=== PATIENT | male | born 1985 | race Caucasian/White ===

== ENCOUNTER 2021-05-10 16:34 | Emergency (ER) | payer SELFPAY ==
[2021-05-10 16:40] VITALS: BP 125/78; PULSE 59; RESP 16; TEMP 36.3; O2SAT 98; BMI 24.3
--- NOTE | 2021-05-10 17:04 | W.ED.PSYCH ---
HPI - Psych General: Chief Complaint: Psychiatric Symptoms Stated Complaint: SI Time Seen by Provider: 05/10/21 16:56 History of Present Illness: HPI Narrative: 36-year-old male presents emergency room voluntarily. He evidently got into argument with his sister today said some things via text message reflecting that he might harm himself. He denies any intent to harm self he is never previously been hospitalized he has not made any attempts in the past to harm self never been hospitalized for any kind of psychiatric illness he is not on any psychiatric medications. He recognizes that what he said and texted precipitated this event and is apologetic but states repeatedly he has no intent of harming himself his episcopal steve prohibits him from doing so he states. He discusses different forward events he is planning including work and other activities. He came voluntarily because he did not want to be on a 96-hour hold and was advised by the pipe assembly worker if you went through this it could resolve the issue. He is very cooperative and not in any way argumentative or confrontational. MD complaint: other Onset (ago): hour(s) Duration: intermittent Relieving factors: none Exacerbating factors: none Associated symptoms: Deny auditory hallucinations, visual hallucinations, delusions, depression, homicidal ideation, suicidal ideation or racing thoughts Treatments prior to arrival: none Review of Systems Const: Denies: fever(s), chills, body aches, change in appetite, fatigue or malaise ENMT: Denies: throat pain, ear or mastoid pain, nasal discharge or nasal congestion Card: Denies: chest pain, edema, dyspnea on exertion or orthopnea Resp: Denies: dyspnea, productive cough or non-productive cough GI: Denies: abdominal pain, nausea, vomiting, hematemesis, coffee ground emesis, diarrhea, constipation, bloating, hematochezia or melena : Denies: flank pain, dysuria, urinary frequency or urinary urgency Skin/Breast: Denies: rash or pruritus Psych: Denies: depression, visual hallucinations, auditory hallucinations, suicidal ideation or homicidal ideation Physical Exam Const: COMMON NORMALS: no acute distress GENERAL APPEARANCE: cooperative and comfortable ORIENTATION/CONSCIOUSNESS: Yes awake, Yes oriented to person, Yes oriented to place and Yes oriented to time HENMT: COMMON NORMALS: normocephalic, atraumatic and hearing grossly normal bilaterally HEAD & SCALP: normocephalic and atraumatic Neck/C-Spine: COMMON NORMALS: no JVD Resp: COMMON NORMALS: normal respiratory effort, No retractions, No use of accessory muscles and clear to auscultation bilaterally AUSCULTATION: clear to auscultation bilaterally Cardio: COMMON NORMALS: no JVD, regular rate, regular rhythm and No murmurs present (Cardio) RATE: regular rate RHYTHM: regular rhythm Extremity: COMMON NORMALS: normal to inspection, capillary refill normal, no clubbing, cyanosis or edema, no calf tenderness and no pedal edema Neuro: SENSORIUM/ORIENTATION: Yes oriented to person, Yes oriented to place and Yes oriented to time Psych: THOUGHT CONTENT: No delusions Skin: COMMON NORMALS: no rashes or lesions noted GENERAL SKIN EXAM: no rashes or lesions noted Course Vital Signs: Vital signs: Vital Signs Temperature 97.3 F L 05/10/21 16:40 Pulse Rate 59 L 05/10/21 16:40 Respiratory Rate 16 05/10/21 16:40 Blood Pressure 125/78 05/10/21 16:40 Pulse Oximetry 98 05/10/21 16:40 MDM - Psych MDM Narrative: Medical decision making narrative: Patient essentially has been excited utterance which he is retracted. In talking to him he is very cooperative he is voluntarily here do not get any sense at all that he truly wants to harm self he denies it repeatedly. Psychiatry consult on the patient recommend they can be discharged home. Discharge Plan Discharge Patient Disposition: Home Clinical Impression: Outbursts of explosive behavior Condition: Stable Discharge Orders: Discharge ED (Routine); Ordered 05/10/21 Ordered By: Eleuterio Pathak Discharge Diet: Usual diet Discharge Activity: Increase activity as tolerated Patient Instructions: Opioid Safety Coding Level of Care Code ED Laboratory Technician for Wilder Fwd Exam Comprehensive
--- NOTE | 2021-05-10 18:24 | PC.NURSE ---
psych consult complete. verbal orders from Dr. Frey to go ahead with discharge
--- NOTE | 2021-05-10 18:29 | P.CONIM_ITS ---
Providers/Reason for Consult Consulting Physican/Specialty*: Jacques Frey MD, psychiatry Reason for Consult*: Suicidal statements Psych Consult HPI History of Present Illness Jacob Castillo is a 36 year old male who made suicidal statements to his sister via text. ED note from Dr. Pathak states: 36-year-old male presents emergency room voluntarily. He evidently got into argument with his sister today said some things via text message reflecting that he might harm himself. He denies any intent to harm self he is never previously been hospitalized he has not made any attempts in the past to harm self never been hospitalized for any kind of psychiatric illness he is not on any psychiatric medications. He recognizes that what he said and texted precipitated this event and is apologetic but states repeatedly he has no intent of harming himself his adventist steve prohibits him from doing so he states. He discusses different forward events he is planning including work and other activities. He came voluntarily because he did not want to be on a 96-hour hold and was advised by the manager disaster recovery if you went through this it could resolve the issue. He is very cooperative and not in any way argumentative or confrontational. The patient presents to me in a manner and with the story consistent with Dr. Pathak's note. He says that he got upset with his sister when she would not lend him money to help him retrieve his vehicle which had been towed. He does say, I said some things that I should not have said. But I was not suicidal, I was frustrated. He denies feeling suicidal recently. He does say he has some periods where he is depressed for a few hours, but not for extended periods. No changes in sleep, appetite, energy, motivation, or concentration. No feelings of helplessness, hopelessness, or worthlessness. No wish to or feeling that he would be better off . He denies ever having had auditory or visual hallucinations or paranoid delusions. He brought himself to the ED after talking to the police, who did a wellness check at the request of his sister. He has been cooperative, open, and transparent in the ED. The patient does say that he had relapsed on meth after his father's last year. He says, I just did not know how to cope. He says he has been abstinent for the last week, and this has left him a little more irritable and on edge. He also says that he has anxiety frequently. He sees a counselor, and has not wanted to take medication, because he did not want to be dependent on the substance. We discussed how SSRIs help with anxiety, their side effects, and their cost. He was surprised that he might be able to get a prescription for medication like Zoloft for as little as $4 per month. He says he has a therapist that he talks to twice a week, and plans to talk with her about a referral to a local provider in his community. He has never been psychiatrically hospitalized, nor has he ever taken psychiatric medications. Psychiatric history: As above. Substance use history: As above. Family history: Patient denies mental health or addiction issues on either side of the family and denies suicide attempts or completions in the family. Psychosocial history: The patient says he grew up in [facility], where he graduated from high school. He was once, then , without children. 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 Legal history: He says he was sentenced to 10 years in penitentiary for burglary and robbery in his mid 20s. He served 6-1/2 years and is now on parole. He says that penitentiary was one of the best experiences of my life. 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 He openly volunteers this information without hesitancy. Medical history: Denies any significant medical history. Review of Systems General: Reports: 10 or more systems reviewed and unremarkable except in HPI and below Mental Status Exam MSE Comments: I met with the patient in a hallway of the ED, as all rooms were filled. He was appropriately groomed and dressed in his work clothes. He was calm, cooperative, interactive, and made good eye contact. No psychomotor agitation or retardation. Speech is at a regular rate and rhythm, normal volume, good articulation, not pressured Alert, oriented to person, place, time, situation Attention and concentration were intact to exam. Memory is adequate for the interview. Mood is euthymic. Affect is pleasant. Thought process is logical and goal directed. Thought content No auditory or visual hallucinations, no suicidal ideation or homicidal ideation. Insight and judgment are intact. Vitals/I&O/Wt Last Vital Signs Temp 97.3 F L 05/10/21 16:40 Pulse 59 L 05/10/21 16:40 Resp 16 05/10/21 16:40 BP 125/78 05/10/21 16:40 Pulse Ox 98 05/10/21 16:40 Weight last 48 hrs Weight 74.843 kg A&P Assessment and plan (1) Outbursts of explosive behavior: Status: Acute (2) Anxiety disorder, unspecified: Status: Acute (3) Methamphetamine use: Status: Acute Additional A&P Information This is an open and cooperative 36-year-old man who wants to take responsibility for his actions, and brought himself to the ED for evaluation after talking to the police who did a wellness check. He has no evidence of major depression or suicidal ideation/intention. He is at low risk for harm to self or others in the community. He is psychiatrically cleared for discharge from the ED. It is recommended that he follow-up with his therapist to get a referral for a medication evaluation. Psychiatric medication, such as an SSRI, may be helpful for his anxiety condition. Attestations NPU Medical Necessity Statement*: N/A?medical necessity to be assessed by ED provider. Coding Level of Care Code Acute Clinical Research Nurse Coordinator for Wilder Rey Diagnoses Outbursts of explosive behavior R46.89 Anxiety disorder, unspecified F41.9 Methamphetamine use F15.10
== END 2021-05-10 18:31 | disposition home or self-care (01) ==
LOC: ER 18:13
PROVIDERS: Emergency Provider Family Medicine
DX: R46.89 Other symptoms and signs involving appearance and behavior (principal)
CPT/HCPCS: 99283

== ENCOUNTER 2021-12-12 17:40 | Inpatient (IN) | payer MEDICAID, SELFPAY ==
[2021-12-12 17:53] VITALS: BP 120/78; PULSE 88; RESP 19; TEMP 36.4; O2SAT 98
[2021-12-12 18:00] VITALS: BMI 24.3
--- NOTE | 2021-12-12 18:26 | PC.NURSE ---
ADMISSION PT ARRIVED DIRECT ADMIT FROM [facility]. STATES THAT HE HAS BEEN UNDER A LOT OF STRESS LATELY. HAS SPLIT UP WITH GIRLFRIEND RECENTLY, NOT BEEN ABLE TO SEE KIDS IN A WEEK, ARGUMENT WITH BOSS, STAYING WITH FRIENDS, INCREASED ANXIETY AND DEPRESSION D/T THESE THINGS. DENIES ANY SI/HI OR AVH, JUST WANTS HELP WITH ANXIETY AND DEPRESSION. HAS MULTIPLE BLISTERS TO B/L FEET. REPORTS THAT HE WALKED OFF JOB SIGHT AFTER ARGUMENT WITH BOSS AND WALKED 20 MILES IN BOOTS. BLISTERS ALL CLOSED AT THIS TIME. CALM, COOPERATIVE, O4.
[2021-12-12] MEDS: hyDROXYzine 25 mg Capsule 50 MG PO (20:27)
[2021-12-12 20:36] VITALS: BP 122/82; PULSE 83; RESP 20; TEMP 36.3; O2SAT 100
[2021-12-13 06:00] VITALS: BP 103/70; PULSE 51; RESP 16; TEMP 36.5; O2SAT 99
--- NOTE | 2021-12-13 08:45 | PC.OT ---
OT EVALUATION ATTEMPTED. PATIENT SLEEPING SOUNDLY AND DOES NOT AWAKEN. WILL ATTEMPT AGAIN AT A LATER TIME
[2021-12-13 14:00] VITALS: BP 111/67; PULSE 58; RESP 18; TEMP 36.4; O2SAT 99
--- NOTE | 2021-12-13 16:08 | W.PM.NPUH&PS ---
Providers/Chief Complaint Admitting Physician: Rickie Lui MD Chief Complaint: Anxiety HPI NPU History of Present Illness Jacob Castillo is a 36 year old male was seen in an outside emergency department with the following report: Client is seeking inpatient hospitalization and would like to be referred for inpatient psychiatric stay in [place]. Client has symptoms congruent with methamphetamine abuse/dependence, cannabis abuse, general anxiety disorder with panic and major depressive disorder. Client denies suicidal or homicidal ideation. Current symptoms of to the threshold of what is typically referred for inpatient hospitalization. However current provider believes that the client would benefit from inpatient psychiatric here if a bed can be found. He was admitted to the neuropsychiatry unit for definitive treatment of these issues. He reports that he has been more irritable and anxious since he was released after 7 years in care home in 2006. He was somewhat obsessive-compulsive that has decreased. He is uncomfortable in crowds. He is irritable. He denies having nightmares about being in care home. He does have all the classic symptoms of PTSD otherwise. He often has difficulty sleeping. He slept well last night with the vistaril. Unfortunately he had a hangover from that today. He was encouraged to try the trazodone tonight. He got into an argument with his sister last year and ended up in the emergency room after making suicidal comments. He was seen by our psychiatrist and reported as below. He was ultimately released that inpatient hospitalization was considered. He was prescribed Zoloft and agreed to take it but did not. He has been working with his girlfriend about 1 week ago and left her at the age hoping that they take care of him. He evidently caught her texting her ex boyfriend. They take care of all of her children and the children of 2 of her relatives. One of her sisters is in [place] [facility] with her . He feels guilty about leaving her and feels responsible for the care of those 8 children. He used methamphetamine about 4 days ago which probably exacerbated his anxiety. He is adamant that he would not use methamphetamine around his family. He denies significant alcohol abuse. His girlfriend only complains about his methamphetamine abuse. She hates that. We discussed the various antidepressants that are usually used for PTSD. He initially said that his family did not have depression, anxiety or alcohol problems. He recognizes the name of Lexapro and said that his mother had said something about taking that at one point and he would like to try it. He was in [employer] prior to going to care home. He was not in combat and denies any traumatic experiences in the [employer] prior to the [employer] which would have caused PTSD. He said that his family life was good and he was not abused or neglected as a child. Meds NPU Home Medications Medication Instructions Recorded Confirmed Last Taken Type No Known Home Medications 12/12/21 12/12/21 Unknown History Allergies Allergy/AdvReac Type Severity Reaction Status Date / Time erythromycin base Allergy ALGY-Anaphy Verified 05/10/21 16:51 laxis Mental Status Exam MSE Comments: This is a appropriate weight 36-year-old male who appears approximately his stated age and is in no acute distress. He is fairly well groomed and in hospital scrubs. psychomotor activity is normal. Speech is at a regular rate and rhythm, normal volume, good articulation, not pressured. Alert, oriented X3 Attention and concentration appear to be good. Memory is intact Mood is depressed. Affect is mildly dysphoric. Thought process is logical and goal-directed. Thought content: Denies auditory and visual hallucinations. No delusions or paranoia are noted. No current suicidal ideation, and no homicidal ideation. Fund of knowledge is average. Insight and judgment appear to be fair. Impulse control is poor. Vitals/I&O/Wt Last Vital Signs Temp 97.6 F 12/13/21 14:00 Pulse 58 L 12/13/21 14:00 Resp 18 12/13/21 14:00 BP 111/67 12/13/21 14:00 Pulse Ox 99 12/13/21 14:00 Weight last 48 hrs Weight 74.843 kg A&P Assessment and plan (1) Methamphetamine use: Status: Acute (2) Anxiety disorder, unspecified: Status: Acute Plan This is a 36-year-old male who appears to have PTSD from spending 7 years in care home. He was admitted due to anxiety and depression after having an argument leaving his family. Plan: 1. We will start Lexapro 10 mg every morning and trazodone at bedtime. 2. Continue every 15 minute checks for safety. 3. Encourage individual, group and milieu therapies. 4. Encourage sober living treatment after discharge at the highest level of care to which he is willing to commit. 5. We will monitor for safety for himself in the community prior to discharge. Involuntary Hold Information 96 Hour Hold: 96 Hour Involuntary Admission: No Attestations NPU Medical Necessity Statement*: Inpatient hospitalization is medically necessary and the clinically appropriate intervention at this time. We will initiate medications and make changes as indicated. He will be in the hospital for over 2 midnights. Likely length of stay 4-6 days Coding Level of Care Code Acute Golf Manager for Wilder Fwd Diagnoses Methamphetamine use F15.10 Anxiety disorder, unspecified F41.9
[2021-12-13 19:00] VITALS: BP 113/80; PULSE 103; RESP 18; TEMP 36.8; O2SAT 92
[2021-12-13] MEDS: trazodone 50 mg Tablet PO (20:35)
[2021-12-14 06:00] VITALS: BP 100/61; PULSE 56; RESP 18; TEMP 36.5; O2SAT 99
[2021-12-14] MEDS: escitalopram 10 mg Tablet PO (06:05)
--- NOTE | 2021-12-14 08:20 | W.PM.NPUDCS ---
Diagnoses at Discharge Discharge Diagnosis (1) Methamphetamine use: Status: Acute (2) Anxiety disorder, unspecified: Status: Acute Reason for Visit Reason for Visit: Anxiety Brief History: History of Present Illness Jacob Castillo is a 36 year old male was seen in an outside emergency department with the following report: Client is seeking inpatient hospitalization and would like to be referred for inpatient psychiatric stay in [place].? Client has symptoms congruent with methamphetamine abuse/dependence, cannabis abuse, general anxiety disorder with panic and major depressive disorder.? Client denies suicidal or homicidal ideation.? Current symptoms of to the threshold of what is typically referred for inpatient hospitalization.? However current provider believes that the client would benefit from inpatient psychiatric here if a bed can be found. He was admitted to the neuropsychiatry unit for definitive treatment of these issues.? He reports that he has been more irritable and anxious since he was released after 7 years in jail in 2006.? He was somewhat obsessive-compulsive that has decreased.? He is uncomfortable in crowds.? He is irritable.? He denies having nightmares about being in jail.? He does have all the classic symptoms of PTSD otherwise.? He often has difficulty sleeping.? He slept well last night with the vistaril.? Unfortunately he had a hangover from that today.? He was encouraged to try the trazodone tonight.? He got into an argument with his sister last year and ended up in the emergency room after making suicidal comments.? He was seen by our psychiatrist and reported as below.? He was ultimately released that inpatient hospitalization was considered.? He was prescribed Zoloft and agreed to take it but did not.? He has been working with his girlfriend about 1 week ago and left her at the age hoping that they take care of him.? He evidently caught her texting her ex boyfriend.? They take care of all of her children and the children of 2 of her relatives.? One of her sisters is in [place] along with her .? He feels guilty about leaving her and feels responsible for the care of those 8 children.? He used methamphetamine about 4 days ago which probably exacerbated his anxiety.? He is adamant that he would not use methamphetamine around his family.? He denies significant alcohol abuse.? His girlfriend only complains about his methamphetamine abuse.? She hates that. We discussed the various antidepressants that are usually used for PTSD.? He initially said that his family did not have depression, anxiety or alcohol problems.? He recognizes the name of Lexapro and said that his mother had said something about taking that at one point and he would like to try it.? He was in [employer] prior to going to jail.? He was not in combat and denies any traumatic experiences in the [employer] prior to the [employer] which would have caused PTSD.? He said that his family life was good and he was not abused or neglected as a child. Hospital Course Hospital Course He slowly acclimated to the individual, group and milieu therapies provided. Started on Lexapro 10 mg and trazodone for sleep. He tolerated these doses and showed steady improvement during his stay. He was able to contract for safety outside hospital prior to discharge. During the hospitalization, patient had routine laboratory studies which were within normal limits except for few outliers. Additionally there was a general medical evaluation which was also within normal limits and revealed no new acute processes. Discharge Summary: At the time of discharge, lethality was denied. Mood and anxiety were well managed. Patient endorsed a plan to follow-up with the aftercare recommendations of the treatment team. Patient was evaluated and deemed to be absent credible lethality, and had achieved the maximum benefit from an inpatient hospitalization, so was discharged. Involuntary Hold Information 96 Hour Hold: 96 Hour Involuntary Admission: No Mental Status Exam MSE Comments: This is a appropriate weight 36-year-old male who appears approximately his stated age and is in no acute distress. He is fairly well groomed and in hospital scrubs. psychomotor activity is normal. Speech is at a regular rate and rhythm, normal volume, good articulation, not pressured. Alert, oriented X3 Attention and concentration appear to be good. Memory is intact Mood is depressed. Affect is mildly dysphoric. Thought process is logical and goal-directed. Thought content: Denies auditory and visual hallucinations. No delusions or paranoia are noted. No current suicidal ideation, and no homicidal ideation. Fund of knowledge is average. Insight and judgment appear to be fair. Impulse control is poor. Cognition: Patient Appearance: Appropriate Ability to Follow Directions: Good Patient Orientation (long list): Person, Name, Age and Birthday Comprehension Ability: Understands Concepts Hallucination Type: None Delusion Description: Not Present Thought Process: Appropriate and Logical Affect: Affect Description: Appropriate and Anxious Behavior: Patient Behavior: Appropriate and Cooperative Speech Pattern: Appropriate and Clear Discharge Data Vitals: Last Vital Signs Temp 97.7 F 12/14/21 06:00 Pulse 56 L 12/14/21 06:00 Resp 18 12/14/21 06:00 BP 100/61 12/14/21 06:00 Pulse Ox 99 12/14/21 06:00 Discharge Plan Discharge Patient Disposition: Home Condition: Stable Prescriptions: New escitalopram oxalate 20 mg tablet 20 mg PO 0700 30 Days Qty: 30 1RF trazodone 50 mg Tablet 50 mg PO BEDTIME 30 Days Qty: 30 1RF Discharge Orders: Discharge Order (Routine); Ordered 12/14/21 Ordered By: Nick Bradley Discharge Diet: Regular Discharge Activity: Resume usual activity Patient Instructions: Opioid Safety Discharge Attestations NPU Time Spent in Discharge Care*: greater than 30 min Specific Discharge Activities: Specific discharge activities: educating patient, discussing with disease case manager/social workers/dc planners, documenting/other paperwork and evaluating patient/reviewing data Coding Level of Care Code Acute g FW DC note Diagnoses Methamphetamine use F15.10 Anxiety disorder, unspecified F41.9
[2021-12-14 08:39] VITALS: BP 100/61; PULSE 56; RESP 18; TEMP 36.5; O2SAT 99
== END 2021-12-14 08:56 | disposition home or self-care (01) | DRG 880 ==
PROVIDERS: Admitting Provider Psychiatry & Neurology Psychiatry; Visit Provider Psychiatry & Neurology Psychiatry
DX: F41.1 Generalized anxiety disorder (principal); F15.20 Other stimulant dependence, uncomplicated; F41.0 Panic disorder [episodic paroxysmal anxiety]; F12.10 Cannabis abuse, uncomplicated; F32.9 Major depressive disorder, single episode, unspecified; F43.10 Post-traumatic stress disorder, unspecified; Z81.8 Family history of other mental and behavioral disorders
CPT/HCPCS: 97165

== ENCOUNTER 2022-10-22 15:06 | Emergency (ER) | payer BC, MEDICAID, SELFPAY ==
[2022-10-22] VITALS (37 sets, daily range): BP systolic 125–152; BP diastolic 78–107; PULSE 53–99; RESP 15–29; O2SAT 98–100
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
[2022-10-22] MEDS: tetanus-dipt-pertussis 0.5 mL SDV IM (15:26)
[2022-10-22] MEDS: sodium chloride 0.9% 500 ML 999 ML IV (15:26)
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
[2022-10-22 15:32] LABS: Basophils % 0.4 %; Eosinophils % 0.2 %; Hematocrit 50.5 % (42.0-52.0); Hemoglobin 16.5 g/dL (11.7-16.6); Lymphocytes # 2.4 10^3/uL (0.8-4.8); Lymphocytes % 21.2 %; Mean Corpuscular HGB Conc 32.7 g/dL (30.0-36.0); Mean Corpuscular Volume 88.9 fl (80-94); Mean Platelet Volume 10.5 fL (7.4-10.4); Monocytes # 0.6 10^3/uL (0.2-0.9); Monocytes % 5.3 %; Neutrophils % 71.7 %; Nucleated Red Blood Cells % 0 %; Platelet Count 258 10^3/cmm (130-400); Red Blood Count 5.68 10^6/uL (4.1-5.3); Red Cell Distribution Width 13.2 % (12.1-15.1); White Blood Count 11.4 10^3/uL (4.0-10.0)
[2022-10-22 15:50] LABS: Alanine Aminotransferase 33 U/L (0-41); Albumin Level 4.6 g/dL (3.5-5.2); Alkaline Phosphatase 96 U/L (40-130); Aspartate Amino Transferase 47 U/L (0-40); Blood Urea Nitrogen 20 mg/dL (6-20); Calcium 9.2 mg/dL (8.5-10.5); Carbon Dioxide 21 mmol/L (22-29); Chloride 101 mmol/L (98-107); Globulin 2.5 g/dL (1.3-4.6); Glomerular Filtration Rate 109.4 mL/min (90-130); Glucose 77 mg/dL (65-115); Osmolality Calculated 285 mOsm/kg (285-295); Sodium 137 mmol/L (136-145); Total Bilirubin 0.2 mg/dL (0.15-1.2); Total Protein 7.1 g/dL (6.6-8.7)
[2022-10-22 15:51] LABS: Anion Gap 18.6 (5-19); Potassium 3.6 mmol/L (3.5-5.1)
[2022-10-22] MEDS: iohexol 350 mg/mL 500 mL Btl (per mL) IV (16:18)
== END 2022-10-22 18:25 | disposition left against medical advice (07) ==
PROVIDERS: Emergency Provider Emergency Medicine
DX: S42.101A Fracture of unspecified part of scapula, right shoulder, initial encounter for closed fracture (principal); S27.0XXA Traumatic pneumothorax, initial encounter; S00.81XA Abrasion of other part of head, initial encounter; S50.812A Abrasion of left forearm, initial encounter; S51.812A Laceration without foreign body of left forearm, initial encounter; V89.2XXA Person injured in unspecified motor-vehicle accident, traffic, initial encounter; Z23 Encounter for immunization; Z53.21 Procedure and treatment not carried out due to patient leaving prior to being seen by health care provider
CPT/HCPCS: 12001; 70450; 71260; 72125; 73030; 73060; 74177; 80053; 85025; 90471; 90715; 96360; 99285; J7040; Q9967

== ENCOUNTER 2023-04-25 09:55 | Emergency (ER) | payer BC, MEDICAID, SELFPAY ==
[2023-04-25 10:15] VITALS: BP 132/86; PULSE 71; RESP 16; TEMP 36.7; O2SAT 98
[2023-04-25 11:02] LABS: Basophils # 0.1 10^3/uL (0.0-0.1); Basophils % 0.5 %; Eosinophils # 0.1 10^3/uL (0.0-0.8); Eosinophils % 0.6 %; Hematocrit 56.4 % (42.0-52.0); Hemoglobin 18.7 g/dL (11.7-16.6); Lymphocytes # 1.2 10^3/uL (0.8-4.8); Lymphocytes % 12.6 %; Mean Corpuscular HGB Conc 33.2 g/dL (30.0-36.0); Mean Corpuscular Hemoglobin 29.7 pg (28.0-34.0); Mean Corpuscular Volume 89.5 fl (80-94); Mean Platelet Volume 9.7 fL (7.4-10.4); Monocytes # 0.6 10^3/uL (0.2-0.9); Monocytes % 6.5 %; Neutrophils # 7.59 10^3/uL (1.8-7.7); Neutrophils % 79.4 %; Nucleated Red Blood Cells % 0 %; Platelet Count 181 10^3/cmm (130-400); Red Cell Distribution Width 13.2 % (12.1-15.1); White Blood Count 9.6 10^3/uL (4.0-10.0)
--- NOTE | 2023-04-25 11:10 | ED_ITS ---
HPI - Abdominal Pain General: Chief Complaint: Abdominal Pain Stated Complaint: n/v x3 days Time Seen by Provider: 04/25/23 11:09 History of Present Illness: 38-year-old male with history of alcohol abuse and migraine headaches presents to emergency room with multiple complaints including headaches, nausea, vomiting and abdominal pain since the of this month. She further reviews that he was celebrating his birthday on the and drank a lot of alcohol. He is then he has some nausea and vomiting with headache. Scribes headache as throbbing sensation with severity of 7 out of 10 mostly frontal. This headache is similar to his previous headaches in the past and not the worst headache of his life. Neck pain, fever, coughing up blood or vomiting blood. Fever or chi lls. No sick contact or recent foreign travel. Describes abdominal pain as burning sensation mostly epigastric area pain is nonradiating. He rated his pain as 5 out of 10. Associated Symptoms: Reports nausea and vomiting; Denies bloating, coffee ground emesis, constipation, diarrhea, heartburn and hematemesis Review of Systems General: Reports: 10 or more systems reviewed and unremarkable except in HPI and below GI: Reports: abdominal pain, nausea and vomiting; Denies: hematemesis, coffee ground emesis, dysphagia, heartburn, early satiety, diarrhea, constipation or bloating Neuro: Reports: headache(s); Denies: numbness in extremities, weakness in extremities, sensory changes, lack of coordination, difficulty walking, frequent falls, dizziness, vertigo or confusion PFS ED PFSH: Medical History (Updated 04/25/23 @ 12:26 by Azucena Hardy MD) Cannabis dependence, uncomplicated Generalized anxiety disorder Nicotine dependence, cigarettes, uncomplicated Other stimulant dependence, in remission Psychiatric care Social History Smoking and tobacco status: never smoked Alcohol intake: never Substance/Drug Use: never Physical Exam Const: COMMON NORMALS: no acute distress and patient oriented x3; limitations and negative for healthy appearing GENERAL APPEARANCE: macey ative, comfortable and odor of alcohol detected Eye: COMMON NORMALS: Equal, round and reactive pupils present, EOMs intact bilaterally, conjunctivae normal, no scleral icterus, no papilledema, normal visual padilla by confrontation and fundi normal bilaterally CONJUNCTIVA: Yes conjunctivae normal PUPIL: Yes Equal, round and reactive pupils present DIRECT OPHTHALMOSCOPY: Yes no papilledema and Yes fundi normal bilaterally Neck/C-Spine: COMMON NORMALS: full ROM, no lymphadenopathy, supple, no meningeal signs, no JVD, Thyroid normal and No carotid bruits THYROID: Thyroid normal Lymph: LYMPHATIC: no lymphadenopathy noted Chest: COMMONS NORMALS: normal inspection of the chest, normal palpation of entire chest wall, normal inspection of the breasts and normal palpation of the breasts Breast/axilla inspection: Yes normal inspection of the breasts BREAST/AXILLA PALPATION: Yes normal palpation of the breasts Resp: COMMON NORMALS: normal respiratory effort, No retractions, No use of accessory muscles, clear to auscultation bilaterally and percussion normal AUSCULTATION: clear to auscultation bilaterally PERCUSSION: percussion normal Cardio: COMMON NORMALS: no JVD GI: COMMON NORMALS: Soft to palpation INSPECTION: Yes normal to inspection, No abdominal wall ecchymosis, No Abdominal wall edema, No Anasarca, No abdominal distension, No incision and No central obesity PALPATION: Yes Soft to palpation and Yes Tenderness to palpation present (GI) Details: other (Epigastric area) Neuro: COMMON NORMALS: patient oriented x3 MENINGEAL SIGNS: Yes no meningeal signs Skin: COMMON NORMALS: no rashes or lesions noted, no wounds, turgor normal, no jaundice, no petechiae and no mottling GENERAL SKIN EXAM: no rashes or lesions noted and turgor normal Course Vital Signs: Vital signs: Vital Signs Temperature 98.0 F 04/25/23 10:15 Pulse Rate 54 L 04/25/23 12:21 Respiratory Rate 16 04/25/23 10:15 Blood Pressure 101/79 04/25/23 12:21 Pulse Oximetry 100 04/25/23 12:21 Oxygen Delivery Me thod Room Air 04/25/23 12:21 MDM - Abdominal Pain Medical Decision Making Patient made comfortable emergency room. Patient was given IV fluid, IV Pepcid, IV Toradol and Benadryl. Upon reassessment patient reveals that his headache is subsided significantly. Discussed the lab findings with the patient. He was reassured and close follow-up PCP recommended. Differential Diagnosis Likely abdominal pain, acute appendicitis, calculus of kidney, constipation, diverticulitis, endometriosis, gastroenteritis, pancreatitis and small bowel obstruction (Meningitis, migraine headaches, headache, cluster headache, brain bleed,) Lab Data 04/25/23 10:45 04/25/23 10:45 Labs/Radiology: Laboratory Results WBC 9.6 10^3/uL (4.0-10.0) 04/25/23 10:45 RBC 6.30 10^6/uL (4.1-5.3) H 04/25/23 10:45 Hgb 18.7 g/dL (11.7-16.6) H 04/25/23 10:45 Hct 56.4 % (42.0-52.0) H 04/25/23 10:45 MCV 89.5 fl (80-94) 04/25/23 10:45 MCH 29.7 pg (28.0-34.0) 04/25/23 10:45 MCHC 33.2 g/dL (30.0-36.0) 04/25/23 10:45 RDW 13.2 % (12.1-15.1) 04/25/23 10:45 Plt Count 181 10^3/cmm (130-400) 04/25/23 10:45 MPV 9.7 fL (7.4-10.4) 04/25/23 10:45 Neut % (Auto) 79.4 % 04/25/23 10:45 Lymph % (Auto) 12.6 % 04/25/23 10:45 Hamlin % (Auto) 6.5 % 04/25/23 10:45 Eos % (Auto) 0.6 % 04/25/23 10:45 Baso % (Auto) 0.5 % 04/25/23 10:45 Neut # (Auto) 7.59 10^3/uL (1.8-7.7) 04/25/23 10:45 Lymph # (Auto) 1.2 10^3/uL (0.8-4.8) 04/25/23 10:45 Hamlin # (Auto) 0.6 10^3/uL (0.2-0.9) 04/25/23 10:45 Eos # (Auto) 0.1 10^3/uL (0.0-0.8) 04/25/23 10:45 Baso # (Auto) 0.1 10^3/uL (0.0-0.1) 04/25/23 10:45 Nucleated RBC % (auto) 0 % 04/25/23 10:45 Nucleated RBCs # 0.0 /100WBC 04/25/23 10:45 Sodium 140 mmol/L (136-145) 04/25/23 10:45 Potassium 4.3 mmol/L (3.5-5.1) 04/25/23 10:45 Chloride 102 mmol/L (98-107) 04/25/23 10:45 Carbon Dioxide 26 mmol/L (22-29) 04/25/23 10:45 Anion Gap 16.3 (5-19) 04/25/23 10:45 BUN 10 mg/dL (6-20) 04/25/23 10:45 Creatinine 0.9 mg/dL (0.7-1.2) 04/25/23 10:45 GFR Calculation 95.0 mL/min (90-130) 04/25/23 10:45 Glucose 100 mg/dL (65-115) 04/25/23 10:45 Calculated Osmolality 289 mOsm/kg (285-295) 04/25/23 10:45 Calcium 9.5 mg/dL (8.5-10.5) 04/25/23 10:45 Total Bilirubin 0.5 mg/dL (0.15-1.2) 04/25/23 10:45 AST 25 U/L (0-40) 04/25/23 10:45 ALT 17 U/L (0-41) 04/25/23 10:45 Alkaline Phosphatase 135 U/L (40-130) H 04/25/23 10:45 Total Protein 7.4 g/dL (6.6-8.7) 04/25/23 10:45 Albumin 4.2 g/dL (3.5-5.2) 04/25/23 10:45 Globulin 3.2 g/dL (1.3-4.6) 04/25/23 10:45 Lipase 14 U/L (13-60) 04/25/23 10:45 Discharge Plan Discharge Patient Disposition: Home Clinical Impression: Acute alcoholic gastritis, Headache, chronic migraine without aura Condition: Stable Prescriptions: New Fioricet 50-300-40 mg capsule 1 cap PO TID PRN (Reason: pain) Qty: 20 0RF promethazine 25 mg tablet 25 mg PO Q4H PRN (Reason: nausea and vomiting) Qty: 20 0RF No Action Aleve 220 mg Tablet 440 mg PO Q12H PRN (Reason: Pain) Discharge Orders: Discharge ED (Routine); Ordered 04/25/23 Ordered By: Azucena Hardy Discharge Diet: Advance as tolerated Discharge Activity: Resume usual activity Patient Instructions: Opioid Safety, Pain Management Coding Level of Care Code ED Gaming Cage Cashier for Wilder Rey
[2023-04-25 11:28] LABS: Alanine Aminotransferase 17 U/L (0-41); Albumin Level 4.2 g/dL (3.5-5.2); Alkaline Phosphatase 135 U/L (40-130); Anion Gap 16.3 (5-19); Aspartate Amino Transferase 25 U/L (0-40); Blood Urea Nitrogen 10 mg/dL (6-20); Calcium 9.5 mg/dL (8.5-10.5); Carbon Dioxide 26 mmol/L (22-29); Chloride 102 mmol/L (98-107); Creatinine Clr Calc Pharmacy 115.0122; Globulin 3.2 g/dL (1.3-4.6); Glucose 100 mg/dL (65-115); Lipase 14 U/L (13-60); Osmolality Calculated 289 mOsm/kg (285-295); Potassium 4.3 mmol/L (3.5-5.1); Sodium 140 mmol/L (136-145); Total Bilirubin 0.5 mg/dL (0.15-1.2); Total Protein 7.4 g/dL (6.6-8.7)
[2023-04-25] MEDS: famotidine 20 mg/2 mL INJ IVP (11:30)
[2023-04-25] MEDS: ondansetron 2 mg/ML SDV 2 mL 4 MG IVP (11:30)
[2023-04-25] MEDS: diphenhydrAMINE 50 mg/mL SDV 1mL 25 MG IVP (11:30)
[2023-04-25] MEDS: sodium chloride 0.9% 1,000 ML 999 ML IV (11:33)
[2023-04-25 12:21] VITALS: BP 101/79; PULSE 54; O2SAT 100
[2023-04-25] MEDS: ketorolac 30 mg/mL INJ IVP (12:29)
[2023-04-25 12:36] VITALS: BP 101/79; PULSE 54; O2SAT 100
--- NOTE | 2023-04-30 10:41 | DCPLANNER ---
geriatric care manager called patient due to no primary care physician - no answer at this time.
== END 2023-04-25 12:36 | disposition home or self-care (01) ==
PROVIDERS: Emergency Medicine; Emergency Provider Family Medicine
DX: K29.20 Alcoholic gastritis without bleeding (principal); G43.709 Chronic migraine without aura, not intractable, without status migrainosus
CPT/HCPCS: 36415; 80053; 83690; 85025; 96361; 96374; 96375; 99284; J1200; J1885; J2405; J3490; J7030

== ENCOUNTER 2024-01-12 20:27 | Inpatient (IN) | payer BC, SELFPAY ==
[2024-01-12 20:31] VITALS: BP 147/95; PULSE 110; RESP 18; TEMP 36.7; O2SAT 97; BMI 24.3
--- NOTE | 2024-01-12 20:48 | W.ED.PSYCHS ---
HPI - Psych General: Chief Complaint: Psychiatric Symptoms Stated Complaint: Si Time Seen by Provider: 01/12/24 20:29 Source: patient Mode of arrival: ambulatory Limitations: no limitations History of Present Illness: 38-year-old male states that his and recently left him he states he is now homeless he said he does not isolate without his for his kids being severely depressed. He states he been having suicidal thoughts he denies any specific plan denies any worse improved factors. Associated symptoms: Reports depression and suicidal ideation Review of Systems Const: Denies: fever(s) or chills ENMT: Denies: throat pain or dental pain Card: Denies: chest pain Resp: Denies: dyspnea GI: Denies: abdominal pain, nausea, vomiting or diarrhea Musc: Denies: neck pain or back pain Skin/Breast: Denies: rash Neuro: Denies: headache(s) Psych: Reports: depression and suicidal ideation [facility] ED PFSH: Medical History Generalized anxiety disorder Nicotine dependence, cigarettes, uncomplicated Cannabis dependence, uncomplicated Other stimulant dependence, in remission Social History Smoking and tobacco/nicotine status: never used tobacco/nicotine Alcohol intake: never Substance/Drug Use: never Physical Exam Const: COMMON NORMALS: no acute distress, patient oriented x3 and healthy appearing HENMT: COMMON NORMALS: normocephalic and atraumatic HEAD & SCALP: normocephalic and atraumatic Eye: COMMON NORMALS: conjunctivae normal CONJUNCTIVA: Yes conjunctivae normal Neck/C-Spine: COMMON NORMALS: full ROM and supple Chest: COMMONS NORMALS: normal inspection of the chest Resp: COMMON NORMALS: normal respiratory effort Cardio: COMMON NORMALS: regular rate RATE: regular rate Extremity: COMMON NORMALS: normal to inspection and full ROM Neuro: COMMON NORMALS: patient oriented x3, moves all extremities and no focal motor deficits Psych: COMMON NORMALS: mental status grossly normal, Normal thought process present and cooperative THOUGHT PROCESS: Normal thought process present THOUGHT CONTENT: Yes Suicidality present Skin: COMMON NORMALS: no rashes or lesions noted and no wounds GENERAL SKIN EXAM: no rashes or lesions noted Course Vital Signs: Vital signs: Vital Signs Temperature 98.1 F 01/12/24 20:31 Pulse Rate 110 H 01/12/24 20:31 Respiratory Rate 18 01/12/24 20:31 Blood Pressure 147/95 01/12/24 20:31 Pulse Oximetry 97 01/12/24 20:31 MDM - Psych Medical Decision Making Patient presents here with suicidal ideation patient is medically cleared he is placed on a 96-hour hold spoke to the psychiatrist and will admit. Medical Records I reviewed the patient's medical records. Lab Data I reviewed the patient's lab results. 01/12/24 20:49 01/12/24 20:49 Laboratory Results WBC 7.17 10^3/uL (3.29-11.43) 01/12/24 20:49 RBC 5.96 10^6/uL (3.85-5.65) H 01/12/24 20:49 Hgb 17.60 g/dL (11.27-16.99) H 01/12/24 20:49 Hct 51.8 % (37-53) 01/12/24 20:49 MCV 86.9 fl (82-101) 01/12/24 20:49 MCH 29.5 pg (27-33) 01/12/24 20:49 MCHC 34.0 g/dL (30-55) 01/12/24 20:49 RDW 12.4 % (12.1-15.1) 01/12/24 20:49 Plt Count 230 10^3/cmm (157-399) 01/12/24 20:49 MPV 9.7 fL (7.4-10.4) 01/12/24 20:49 Neut % (Auto) 66.0 % 01/12/24 20:49 Lymph % (Auto) 25.9 % 01/12/24 20:49 Henderson % (Auto) 7.3 % 01/12/24 20:49 Eos % (Auto) 0.3 % 01/12/24 20:49 Baso % (Auto) 0.4 % 01/12/24 20:49 Neut # (Auto) 4.73 10^3/uL (1.8-7.7) 01/12/24 20:49 Lymph # (Auto) 1.9 10^3/uL (0.8-4.8) 01/12/24 20:49 Henderson # (Auto) 0.5 10^3/uL (0.2-0.9) 01/12/24 20:49 Eos # (Auto) 0.0 10^3/uL (0.0-0.8) 01/12/24 20:49 Baso # (Auto) 0.0 10^3/uL (0.0-0.1) 01/12/24 20:49 Nucleated RBC % (auto) 0 % 01/12/24 20:49 Nucleated RBCs # 0.0 /100WBC 01/12/24 20:49 Sodium 140 mmol/L (136-145) 01/12/24 20:49 Potassium 3.9 mmol/L (3.5-5.1) 01/12/24 20:49 Chloride 103 mmol/L (98-107) 01/12/24 20:49 Carbon Dioxide 23 mmol/L (22-29) 01/12/24 20:49 Anion Gap 17.9 (5-19) 01/12/24 20:49 BUN 14 mg/dL (6-20) 01/12/24 20:49 Creatinine 0.9 mg/dL (0.7-1.2) 01/12/24 20:49 GFR Calculation 95.0 mL/min (90-130) 01/12/24 20:49 Glucose 107 mg/dL (65-115) 01/12/24 20:49 Calculated Osmolality 291 mOsm/kg (285-295) 01/12/24 20:49 Calcium 9.7 mg/dL (8.5-10.5) 01/12/24 20:49 Total Bilirubin 0.8 mg/dL (0.15-1.2) 01/12/24 20:49 AST 23 U/L (0-40) 01/12/24 20:49 ALT 23 U/L (0-41) 01/12/24 20:49 Alkaline Phosphatase 96 U/L (40-130) 01/12/24 20:49 Total Protein 8.2 g/dL (6.6-8.7) 01/12/24 20:49 Albumin 4.8 g/dL (3.5-5.2) 01/12/24 20:49 Globulin 3.4 g/dL (1.3-4.6) 01/12/24 20:49 Salicylates 3.2 mg/dL (3-10) 01/12/24 20:49 Acetaminophen < 5.0 ug/mL (10-30) L 01/12/24 20:49 Ethyl Alcohol 81 mg/dL (0-10) H 01/12/24 20:49 No radiology studies performed this visit Discharge Plan Discharge Patient Disposition: Admitted As Inpatient Admit Provider: Rickie Lui Clinical Impression: Suicidal ideation Condition: Stable Coding Level of Care Code ED Animal Surgeon for Wilder Rey
[2024-01-12 20:57] LABS: Basophils % 0.4 %; Eosinophils % 0.3 %; Hematocrit 51.8 % (37-53); Lymphocytes # 1.9 10^3/uL (0.8-4.8); Lymphocytes % 25.9 %; Mean Corpuscular Hemoglobin 29.5 pg (27-33); Mean Corpuscular Volume 86.9 fl (82-101); Mean Platelet Volume 9.7 fL (7.4-10.4); Monocytes # 0.5 10^3/uL (0.2-0.9); Monocytes % 7.3 %; Neutrophils # 4.73 10^3/uL (1.8-7.7); Nucleated Red Blood Cells % 0 %; Platelet Count 230 10^3/cmm (157-399); Red Blood Count 5.96 10^6/uL (3.85-5.65); Red Cell Distribution Width 12.4 % (12.1-15.1); White Blood Count 7.17 10^3/uL (3.29-11.43)
[2024-01-12 21:17] LABS: Acetaminophen < 5.0 ug/mL (10-30); Alanine Aminotransferase 23 U/L (0-41); Albumin Level 4.8 g/dL (3.5-5.2); Alcohol Level 81 mg/dL (0-10); Alkaline Phosphatase 96 U/L (40-130); Anion Gap 17.9 (5-19); Aspartate Amino Transferase 23 U/L (0-40); Blood Urea Nitrogen 14 mg/dL (6-20); Calcium 9.7 mg/dL (8.5-10.5); Carbon Dioxide 23 mmol/L (22-29); Chloride 103 mmol/L (98-107); Creatinine Clr Calc Pharmacy 115.0122; Globulin 3.4 g/dL (1.3-4.6); Glucose 107 mg/dL (65-115); Osmolality Calculated 291 mOsm/kg (285-295); Potassium 3.9 mmol/L (3.5-5.1); Salicylate 3.2 mg/dL (3-10); Sodium 140 mmol/L (136-145); Total Bilirubin 0.8 mg/dL (0.15-1.2); Total Protein 8.2 g/dL (6.6-8.7)
--- NOTE | 2024-01-12 21:50 | PC.NURSE ---
Pt served with copy of 96 HH by this RN and security. Pt tearful and asking for a picture from his wallet. Pt asking if this admission would be able to released him into an appropriate detox center after discharge. Pt A&Ox3, willing to be admitted.
[2024-01-12 22:11] VITALS: BP 120/83; PULSE 90; RESP 18; TEMP 36.4; O2SAT 98
[2024-01-12 23:01] VITALS: BP 107/63; PULSE 74; RESP 16; O2SAT 98
--- NOTE | 2024-01-12 23:47 | PC.NURSE ---
Admission Note Pt arrived to NPU by wheel chair at 2258. Pt stated that he is here because life sucks and everything he lives and works for is gone now. Pt told ED that his had left him and he is now depressed. Pt appears to be upset and irritated during admission. Pt has very poor eye contact and kept saying that we are taking away his roman catholic rights by having him take off his wedding ring. Pt denied SI/HI/AVH during admission and denied any substance abuse HX. Pt was dressed into NPU scrubs, skin assessment was normal but pt appears to be sunburnt and his eyes are appear to be very red. Pt was orientated to unit and is now observed resting in bed quietly with eyes closed. Behavioral monitoring continues.
[2024-01-13 03:58] VITALS: BP 115/74; PULSE 58; RESP 18; TEMP 36.6; O2SAT 97
[2024-01-13] MEDS: multivitamin therapeutic Tablet 1 TAB PO (11:09)
[2024-01-13] MEDS: thiamine 100 mg Tablet PO (11:09)
[2024-01-13] MEDS: folic acid 1 mg Tablet PO (11:10)
--- NOTE | 2024-01-13 11:51 | W.PM.NPUH&PS ---
Providers/Chief Complaint Admitting Physician: Rickie Lui MD Chief Complaint: Si HPI NPU History of Present Illness Jacob Castillo is a 38 year old male who presented to the emergency department stating that he was homeless and that he had suicidal thoughts. The patient had reported that he had no active plan but was feeling increasingly hopeless over the last few days. Patient was admitted to the neuropsychiatric unit for further evaluation and treatment. He had stated that he had been from his for a few days and reports that he had recently been presented by the police with an ex partner a and reports that he was tired of living away from his home. He reports that he had feels that he has lost everything as he states that he is lost all of his life and reports that he feels that he may do something desperate if he did not go into the hospital. He reports a past history of polysubstance abuse but reports currently using marijuana nearly every day along with alcohol use daily for the last 9 months. He had minimized any history of alcohol-related withdrawal symptoms. He reports that he has had depression at various times in his life but had been doing well until he had the interaction with his yesterday where she told him that she was going to take all of the children and move out permanently. Patient denies any history of nayely. He denies any auditory or visual hallucinations. He had acknowledged previous methamphetamine use in the past but states that he has not used in years. He had reported having chronic problems with managing his anxiety. Time In: 12:00 Time Out: 13:00 Chief Complaint: Anxiety History of Present Illness: [facility]. Jacob reports high anxiety. States anxiety controls his life and causes him not to be able to work and provide for his family. He describes his anxiety as feeling sweaty, his heart rate increasing, sounds intensifying and sounding very loud. Tells me this is increased when he is around a lot of people. He states he has gone into stores and had to turn around and leave. Anxiety is better when he is at home. Reports mild depression that he is unable to take care of his family. States he gets aggravated for no reason and can be irritable. No suicidal thoughts. No homicidal thoughts. No auditory or visual hallucinations. States he sleeps well for the most part. States he can go weeks going to bed at 10 PM and waking up at 6 AM but then sometimes he will not go to sleep until 6 AM and will sleep until 6 PM. He reports when he is at work sometimes he worries is he working fast enough or is he doing the job right. Reports somewhat of paranoid thoughts when he is on the job. Uses marijuana to treat his anxiety but because he is on parole he is wanting to trial medications for his anxiety as to not upset his intelligence officer basic. Denies a history of nayely. He had minimized any PTSD symptoms although those symptoms had been reported in the past stemming from his trauma after he had been incarcerated for 7 years per previous records. He had minimized any alcohol related withdrawal symptoms with no history of DTs. The patient had reported that he had been using a significant quantity of alcohol and may have vomited blood in the past but reports no history of blackouts. Patient reports difficulties being in large crowds, past history of anxiety attacks. He reports having frequent mood swings and struggles with chronic anxiety. Inpatient psychiatric history: 1 previous inpatient psychiatric hospitalization in December 2021. Outpatient psychiatric history: Patient had been receiving treatment at the behavioral health clinic in the past. He had reported no history of suicide attempts. Previous medication trials have included Lexapro, Zoloft, and trazodone with reports of sexual side effects. He is currently not not receiving any psychotherapy. Allergies: Erythromycin Medical history: Significant only for double hernia repair surgically and some chronic right knee pain. He has no primary care provider. Substance abuse history: He is smoked 1 pack/day of cigarettes since the age of 26. There are previous documentation of a history of methamphetamine use along with opiate abuse but stated that he has been without stimulant or opiate use for years. He had reported that he began use of alcohol at the age of 15 and reports having periods of no use of alcohol for years but reports significant use over the past 9 months. Family History: Denies a family history of mental illness Legal History: not on probation or parole currently, hx of being [id number] for robbery. Multiple DWI x4, History: history for less than 1 year, medical discharge secondary to knee. Social History: The patient was born in [place] [facility] and raised in [place]. He resided with his mother and stepfather. He reports having 3 sisters none of whom he is close with at this time. He states his mother when patient was 30 and his father at the age of 34. He had reported graduating high school with no history of learning problems. He had reported having a happy childhood. He had reported that he had been incarcerated in the past per previous records having engaged in robbery and kidnapping. He had been living with his current common-law for 4 years but is currently homeless. He has no biological children of his own but has 5 steps children who live with the patient's common-law . 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 Blood alcohol level was 81, UDS not completed. Meds NPU Home Medications Medication Instructions Recorded Confirmed Last Taken Type No Known Home Medications 01/12/24 01/12/24 Unknown History Allergies Allergy/AdvReac Type Severity Reaction Status Date / Time erythromycin base Allergy ALGY-Anaphy Verified 04/25/23 11:16 laxis PFSH NPU PFSH: Medical History Generalized anxiety disorder Nicotine dependence, cigarettes, uncomplicated Cannabis dependence, uncomplicated Other stimulant dependence, in remission Social History Smoking and tobacco/nicotine status: never used tobacco/nicotine Alcohol intake: never Substance/Drug Use: never Mental Status Exam MSE Comments: Patient was alert and oriented to person place time and situation. His hygiene appeared poor. He was lying in bed and appeared initially disinterested in providing history but appeared to warm up later. His gait appeared adequate. There was no evidence of any abnormal involuntary motor movements tics or tremors appreciated. His speech was regular in rate rhythm volume tone and prosody. His eye contact was poor. There was evidence of mild to moderate psychomotor retardation. His mood was described as depressed. His affect was tearful and mood congruent. His thought content showed evidence of suicidal ideation with no active plan. He denied any homicidal ideation. He did not appear to be responding internal stimuli and denied any auditory or visual hallucinations. There was no clear evidence of delusional thinking. His attention span appeared fair. His recent and remote memory appeared grossly intact. Vitals/I&O/Wt Last Vital Signs Temp 97.8 F 01/13/24 03:58 Pulse 58 L 04/09/24 03:58 Resp 18 01/13/24 03:58 BP 115/74 01/13/24 03:58 Pulse Ox 97 01/13/24 03:58 O2 Del Method Room Air 01/13/24 03:58 Weight last 48 hrs Weight 74.843 kg Data NPU 01/12/24 20:49 01/12/24 20:49 A&P Assessment and plan (1) Depression, unspecified: (2) Alcohol abuse: (3) Suicidal ideation: (4) Generalized anxiety disorder: (5) Cannabis dependence, uncomplicated: Plan 38-year-old male with history of depression admitted with suicidal ideation in the context of use of alcohol as well with recent homelessness as a stressor. #1.? Engage patient in individual milieu and group therapy. #2?? Recommend sober living treatment at the highest level of care to which the patient is willing to commit #3??? CIWA for alcohol withdrawal #4?? TO-15 minute checks #5?? Will attempt to gather collateral information. Consider antidepressant and medication to reduce alcohol cravings Involuntary Hold Information 96 Hour Hold: 96 Hour Involuntary Admission: Yes 96 Hour Hold Ending Date: 01/16/24 96 Hour Hold Ending Time: 20:55 Attestations NPU Medical Necessity Statement*: Inpatient hospitalization is medically necessary and deemed to ?be ?the clinically appropriate intervention ?at this time.? We will monitor/initiate medications and make changes as indicated.? The patient will be in the hospital for over 2 midnights.? The patient?s likely length of stay 3-5 days. Coding Level of Care Code Acute Code for [facility] Diagnoses Depression, unspecified F32.A Alcohol abuse F10.10 Suicidal ideation R45.851 Generalized anxiety disorder F41.1 Cannabis dependence, uncomplicated F12.20
[2024-01-13 14:00] VITALS: BP 99/59; PULSE 62; RESP 16; TEMP 36.6; O2SAT 99
[2024-01-13 19:42] VITALS: BP 97/54; PULSE 73; RESP 16; TEMP 37; O2SAT 97
[2024-01-13 23:56] VITALS: BP 127/67; PULSE 68; RESP 17; TEMP 36.7; O2SAT 97
[2024-01-14 04:30] VITALS: BP 111/74; PULSE 55; RESP 18; TEMP 36.6; O2SAT 98
[2024-01-14 06:00] VITALS: BP 114/70; PULSE 50; RESP 17; TEMP 36.7; O2SAT 98
[2024-01-14 07:55] VITALS: BP 114/69; PULSE 52; RESP 16; TEMP 36.8; O2SAT 97
[2024-01-14] MEDS: thiamine 100 mg Tablet PO (08:04)
[2024-01-14] MEDS: folic acid 1 mg Tablet PO (08:04)
[2024-01-14] MEDS: multivitamin therapeutic Tablet 1 TAB PO (08:04)
[2024-01-14 11:38] VITALS: BP 148/99; PULSE 100; RESP 16; TEMP 36.6; O2SAT 96
[2024-01-14 13:53] VITALS: BP 120/68; PULSE 77; RESP 16; TEMP 36.6; O2SAT 98
--- NOTE | 2024-01-14 14:34 | P.NPUPN_ITS ---
Subjective NPU 2 Subjective: 38-year-old white male [facility] with depression and suicidal ideation with a history of polysubstance abuse. Patient had reported that he was motivated to return to work and wished to get help on an outpatient basis for managing his problems with alcohol consumption. He was agreeable to consideration of Vivitrol to target cravings for alcohol. He had reported continuing to feel depressed and hopeless. He had endorsed having significant losses as he stated that he had been homeless and reported continued periods of sadness. He had endorsed significant trauma from his time spent in jail for several years. He had reported that he would like to return back to counseling at this time. Staff notes the patient had spent nearly the whole day in his room sleeping. He had continued to report active anxiety and stated that he did not wish to consider antidepressants at this time secondary to previous problems with tolerating antidepressants including sexual dysfunction. Mental Status Exam 2 MSE Comments: The patient was completely covered in his blanket and required some prompting to show his face on interview. His hygiene was poor. Patient was alert and oriented to person place time and situation. He was lying in bed and was minimally engaged initially. His gait appeared adequate. There was no evidence of any abnormal involuntary motor movements tics or tremors appreciated. His speech was regular in rate rhythm volume tone and prosody. His eye contact was fleeting. There was evidence of mild to moderate psychomotor retardation. His mood was described as depressed. His affect remained restricted. He minimized any suicidal ideation. He denied any homicidal ideation. He did endorse a sense of hopelessness. He did not appear to be responding internal stimuli and denied any auditory or visual hallucinations. There was no clear evidence of delusional thinking. His attention span appeared fair. His recent and remote memory appeared grossly intact. Vitals/I&O/Wt Last Vital Signs Temp 97.8 F 01/14/24 13:53 Pulse 77 01/14/24 13:53 Resp 16 01/14/24 13:53 BP 120/68 01/14/24 13:53 Pulse Ox 98 01/14/24 13:53 O2 Del Method Room Air 01/14/24 11:38 Weight last 48 hrs Weight 74.843 kg Data NPU 01/12/24 20:49 01/12/24 20:49 A&P Assessment and plan (1) Depression, unspecified: (2) Alcohol abuse: (3) Suicidal ideation: (4) Generalized anxiety disorder: (5) Cannabis dependence, uncomplicated: Plan 38-year-old male with history of depression admitted with suicidal ideation in the context of use of alcohol as well with recent homelessness as a stressor. #1.? Engage patient in individual milieu and group therapy. #2?? Recommend sober living treatment at the highest level of care to which the patient is willing to commit #3??? CIWA for alcohol withdrawal. Currently not scoring on withdrawal scale. Trial of oral naltrexone 50mg today with plan for IM vivitrol to target ETOH dependence. #4?? TO-15 minute checks #5?? Will attempt to gather collateral information. Patient refusing medication to target depression/anxiety. Involuntary Hold Information 2 96 Hour Hold: 96 Hour Involuntary Admission: Yes 96 Hour Hold Ending Date: 01/16/24 96 Hour Hold Ending Time: 20:55 Attestations NPU 2 Medical Necessity Statement*: Inpatient hospitalization is medically necessary and deemed to ?be ?the clinically appropriate intervention ?at this time.? We will monitor/initiate medications and make changes as indicated.? The patient?s likely length of stay 3-5 days. Coding Level of Care Code Acute Code for [facility] Fwd Diagnoses Depression, unspecified F32.A Alcohol abuse F10.10 Suicidal ideation R45.851 Generalized anxiety disorder F41.1 Cannabis dependence, uncomplicated F12.20
[2024-01-14] MEDS: naltrexone hcl 50 mg Tablet PO (14:53)
[2024-01-14 14:57] LABS: Amphetamines Screen Urine Positive (Negative); Barbiturates Screen Urine Negative (Negative); Benzodiazepines Screen Urine Negative (Negative); Cocaine Screen Urine Negative (Negative); Opiate Screen Urine Negative (Negative); PCP Screen Urine Negative (Negative); THC Screen Urine Positive (Negative)
[2024-01-14 19:28] VITALS: BP 110/69; PULSE 57; RESP 16; TEMP 36.7; O2SAT 99
[2024-01-15 06:00] VITALS: BP 102/54; PULSE 50; RESP 14; TEMP 36.6; O2SAT 98
[2024-01-15] MEDS: multivitamin therapeutic Tablet 1 TAB PO (09:37)
[2024-01-15] MEDS: naltrexone hcl 50 mg Tablet PO (09:37)
[2024-01-15] MEDS: folic acid 1 mg Tablet PO (09:37)
[2024-01-15] MEDS: thiamine 100 mg Tablet PO (09:37)
--- NOTE | 2024-01-15 13:24 | P.NPUDS_ITS ---
Diagnoses at Discharge Discharge Diagnosis (1) Depression, unspecified: Status: Acute Qualifiers: Depression Type: unspecified Qualified Code(s): F32.A - Depression, unspecified (2) Alcohol abuse: Status: Acute (3) Suicidal ideation: Status: Acute (4) Generalized anxiety disorder: Status: Acute (5) Cannabis dependence, uncomplicated: Status: Acute Reason for Visit Reason for Visit: Si Brief History: History of Present Illness Jacob Castillo is a 38 year old male who presented to the emergency department stating that he was homeless and that he had suicidal thoughts. The patient had reported that he had no active plan but was feeling increasingly hopeless over the last few days. Patient was admitted to the neuropsychiatric unit for further evaluation and treatment. He had stated that he had been from his for a few days and reports that he had recently been presented by the police with an ex partner a and reports that he was tired of living away from his home. He reports that he had feels that he has lost everything as he states that he is lost all of his life and reports that he feels that he may do something desperate if he did not go into the hospital. He reports a past history of polysubstance abuse but reports currently using marijuana nearly every day along with alcohol use daily for the last 9 months. He had minimized any history of alcohol-related withdrawal symptoms. He reports that he has had depression at various times in his life but had been doing well until he had the interaction with his yesterday where she told him that she was going to take all of the children and move out permanently. Patient denies any history of nayely. He denies any auditory or visual hallucinations. He had acknowledged previous methamphetamine use in the past but states that he has not used in years. He had reported having chronic problems with managing his anxiety. Time In: 12:00 Time Out: 13:00 Chief Complaint: Anxiety History of Present Illness: [facility]. Jacob reports high anxiety. States anxiety controls his life and causes him not to be able to work and provide for his family. He describes his anxiety as feeling sweaty, his heart rate increasing, sounds intensifying and sounding very loud. Tells me this is increased when he is around a lot of people. He states he has gone into stores and had to turn around and leave. Anxiety is better when he is at home. Reports mild depression that he is unable to take care of his family. States he gets aggravated for no reason and can be irritable. No suicidal thoughts. No homicidal thoughts. No auditory or visual hallucinations. States he sleeps well for the most part. States he can go weeks going to bed at 10 PM and waking up at 6 AM but then sometimes he will not go to sleep until 6 AM and will sleep until 6 PM. He reports when he is at work sometimes he worries is he working fast enough or is he doing the job right. Reports somewhat of paranoid thoughts when he is on the job. Uses marijuana to treat his anxiety but because he is on parole he is wanting to trial medications for his anxiety as to not upset his chief accounting officer. Denies a history of nayely. He had minimized any PTSD symptoms although those symptoms had been reported in the past stemming from his trauma after he had been incarcerated for 7 years per previous records. He had minimized any alcohol related withdrawal symptoms with no history of DTs. The patient had reported that he had been using a significant quantity of alcohol and may have vomited blood in the past but reports no history of blackouts. Patient reports difficulties being in large crowds, past history of anxiety attacks. He reports having frequent mood swings and struggles with chronic anxiety. Inpatient psychiatric history: 1 previous inpatient psychiatric hospitalization in December 2021. Outpatient psychiatric history: Patient had been receiving treatment at the behavioral health clinic in the past. He had reported no history of suicide attempts. Previous medication trials have included Lexapro, Zoloft, and trazodone with reports of sexual side effects. He is currently not not receiving any psychotherapy. Allergies: Erythromycin Medical history: Significant only for double hernia repair surgically and some chronic right knee pain. He has no primary care provider. Substance abuse history: He is smoked 1 pack/day of cigarettes since the age of 26. There are previous documentation of a history of methamphetamine use along with opiate abuse but stated that he has been without stimulant or opiate use for years. He had reported that he began use of alcohol at the age of 15 and reports having periods of no use of alcohol for years but reports significant use over the past 9 months. Family History: Denies a family history of mental illness Legal History: not on probation or parole currently, hx of being sent to [facility] from [id number] for robbery. Multiple DWI x4, History: history for less than 1 year, medical discharge secondary to knee. Social History: The patient was born in [place] and raised in [place] [facility] [place]. He resided with his mother and stepfather. He reports having 3 sisters none of whom he is close with at this time. He states his mother when patient was 30 and his father at the age of 34. He had reported graduating high school with no history of learning problems. He had reported having a happy childhood. He had reported that he had been incarcerated in the past per previous records having engaged in robbery and kidnapping. He had been living with his current common-law for 4 years but is currently homeless. He has no biological children of his own but has 5 steps children who live with the patient's common-law . 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 Blood alcohol level was 81, UDS not completed. Hospital Course Hospital Course During the hospitalization, the patient had routine laboratory studies which were within normal limits except for a few outliers.? Additionally, there was a general medical evaluation which was also within normal limits and revealed no new acute processes.? At the time of discharge, lethality was denied and mood appeared better. ? Mood and anxiety were well managed.? The patient endorsed a plan to avoid all drugs of abuse and follow up with the aftercare recommendations of the treatment team.? The patient was evaluated and deemed to be absent credible lethality and had achieved the maximum benefit from an inpatient hospitalization, and so was discharged. ?The patient did not wish to consider any antidepressant but was interested in a medication to target his c ravings for alcohol. An oral dose of naltrexone was started without any noted side effects or allergic reaction. The patient then received 380 mg intramuscularly of Vivitrol to target alcohol abuse at the time of discharge. He was agreeable to returning home and receiving outpatient follow-up for his substance use issues. Involuntary Hold Information 96 Hour Hold: 96 Hour Involuntary Admission: Yes 96 Hour Hold Ending Date: 01/16/24 96 Hour Hold Ending Time: 20:55 Mental Status Exam MSE Comments: The patient was casually dressed white male His hygiene was improving. Patient was alert and oriented to person place time and situation. His gait appeared adequate. There was no evidence of any abnormal involuntary motor movements tics or tremors appreciated. His speech was regular in rate rhythm volume tone and prosody. His eye contact was fair. There was evidence of mild psychomotor retardation on discharge. His mood was described as allright. His affect appeared brighter on dishcarge. He minimized any suicidal ideation. He denied any homicidal ideation. He denied any feelings of hopelessness. He did not appear to be responding internal stimuli and denied any auditory or visual hallucinations. There was no clear evidence of delusional thinking. His attention span appeared fair. His recent and remote memory appeared grossly intact. His insight was fair. His judgment and impulse control was improved at the time of discharge. Discharge Data Studies Completed and Pending: Laboratory Results WBC 7.17 10^3/uL (3.2 9-11.43) 01/12/24 20:49 RBC 5.96 10^6/uL (3.8 5-5.65) H 01/12/24 20:49 Hgb 17.60 g/dL (11.27 -16.99) H 01/12/24 20:49 Hct 51.8 % (37-53) 01/12/24 20:49 MCV 86.9 fl (82-101) 01/12/24 20:49 MCH 29.5 pg (27-33) 01/12/24 20:49 MCHC 34.0 g/dL (30-55) 01/12/24 20:49 RDW 12.4 % (12.1-15.1 ) 01/12/24 20:49 Plt Count 230 10^3/cmm (157 -399) 01/12/24 20:49 MPV 9.7 fL (7.4-10.4) 01/12/24 20:49 Neut % (Auto) 66.0 % 01/12/24 20:49 Lymph % (Auto) 25.9 % 01/12/24 20:49 [place] % (Auto) 7.3 % 01/12/24 20:49 Eos % (Auto) 0.3 % 01/12/24 20:49 Baso % (Auto) 0.4 % 01/12/24 20:49 Neut # (Auto) 4.73 10^3/uL (1.8 -7.7) 01/12/24 20:49 Lymph # (Auto) 1.9 10^3/uL (0.8- 4.8) 01/12/24 20:49 [place] # (Auto) 0.5 10^3/uL (0.2- 0.9) 01/12/24 20:49 Eos # (Auto) 0.0 10^3/uL (0.0- 0.8) 01/12/24 20:49 Baso # (Auto) 0.0 10^3/uL (0.0- 0.1) 01/12/24 20:49 Nucleated RBC % (a uto) 0 % 01/12/24 20:49 Nucleated RBCs # 0.0 /100WBC 01/12/24 20:49 Sodium 140 mmol/L (136-1 45) 01/12/24 20:49 Potassium 3.9 mmol/L (3.5-5 .1) 01/12/24 20:49 Chloride 103 mmol/L (98-10 7) 01/12/24 20:49 Carbon Dioxide 23 mmol/L (22-29) 01/12/24 20:49 Anion Gap 17.9 (5-19) 01/12/24 20:49 BUN 14 mg/dL (6-20) 01/12/24 20:49 Creatinine 0.9 mg/dL (0.7-1. 2) 01/12/24 20:49 GFR Calculation 95.0 mL/min (90-1 30) 01/12/24 20:49 Glucose 107 mg/dL (65-115 ) 01/12/24 20:49 Calculated Osmolal ity 291 mOsm/kg (285- 295) 01/12/24 20:49 Calcium 9.7 mg/dL (8.5-10 .5) 01/12/24 20:49 Total Bilirubin 0.8 mg/dL (0.15-1 .2) 01/12/24 20:49 AST 23 U/L (0-40) 01/12/24 20:49 ALT 23 U/L (0-41) 01/12/24 20:49 Alkaline Phosphata se 96 U/L (40-130) 01/12/24 20:49 Total Protein 8.2 g/dL (6.6-8.7 ) 01/12/24 20:49 Albumin 4.8 g/dL (3.5-5.2 ) 01/12/24 20:49 Globulin 3.4 g/dL (1.3-4.6 ) 01/12/24 20:49 Salicylates 3.2 mg/dL (3-10) 01/12/24 20:49 Urine Opiates Scre en Negative ng/mL (N egative) 01/14/24 13:55 Acetaminophen < 5.0 ug/mL (10-3 0) L 01/12/24 20:49 Ur Barbiturates Sc reen Negative ng/mL (N egative) 01/14/24 13:55 Ur Phencyclidine S crn Negative ng/mL (N egative) 01/14/24 13:55 Ur Amphetamines Sc reen Positive ng/mL (N egative) H 01/14/24 13:55 U Benzodiazepines Scrn Negative ng/mL (N egative) 01/14/24 13:55 Urine Cocaine Scre en Negative ng/mL (N egative) 01/14/24 13:55 U Marijuana (THC) Screen Positive ng/mL (N egative) H 01/14/24 13:55 Ethyl Alcohol 81 mg/dL (0-10) H 01/12/24 20:49 Vitals: Last Vital Signs Temp 97.9 F 01/15/24 06:00 Pulse 50 L 01/15/24 06:00 Resp 14 01/15/24 06:00 BP 102/54 01/15/24 06:00 Pulse Ox 98 01/15/24 06:00 O2 Del Method Room Air 01/15/24 06:00 Discharge Plan Discharge Patient Disposition: Home Condition: Stable Prescriptions: No Action No Known Home Medications Discharge Orders: Discharge Order (Routine); Ordered 01/15/24 Ordered By: Danilo Cifuentes Referrals: [employer] [Other] (Call Baljeet Snyder with any [employer] questions.) [facility] [Outside] - 01/22/24 8:30 am (Initial assessment appointment is with [facility].) Discharge Diet: Usual diet Discharge Activity: Resume usual activity Patient Instructions: Opioid Safety Discharge Attestations NPU Time Spent in Discharge Care*: less than 30 min Specific Discharge Activities: Specific discharge activities: educating patient, discussing with housing case manager/social workers/dc planners and documenting/other paperwork Coding Level of Care Code Acute Code for [facility] Fwd Diagnoses Depression, unspecified depression type F32.A Depression Type: unspecified Alcohol abuse F10.10 Suicidal ideation R45.851 Generalized anxiety disorder F41.1 Cannabis dependence, uncomplicated F12.20
[2024-01-15 13:42] VITALS: BP 102/54; PULSE 50; RESP 14; TEMP 36.6; O2SAT 98
[2024-01-15] MEDS: VIVITROL 380 EACH IM (13:48)
[2024-01-15 13:58] VITALS: BP 109/67; PULSE 63; RESP 18; TEMP 36.8; O2SAT 97
== END 2024-01-15 14:32 | disposition home or self-care (01) | DRG 881 ==
LOC: ER 20:50 → NP 21:51
PROVIDERS: Admitting Provider Psychiatry & Neurology Psychiatry; Emergency Provider Emergency Medicine; Visit Provider Psychiatry & Neurology Psychiatry
DX: F32.A Depression, unspecified (principal); R45.851 Suicidal ideations; Z59.00 Homelessness unspecified; F15.20 Other stimulant dependence, uncomplicated; F10.10 Alcohol abuse, uncomplicated; F41.1 Generalized anxiety disorder; F17.210 Nicotine dependence, cigarettes, uncomplicated
CPT/HCPCS: 36415; 80053; 80306; 80307; 85025; 96372; 97165; 99285

== ENCOUNTER 2025-05-11 06:21 | Emergency (ER) | payer BC, MEDICAID, SELFPAY ==
[2025-05-11 06:27] VITALS: BP 147/91; PULSE 90; RESP 18; TEMP 36.7; O2SAT 99; BMI 23.3
--- NOTE | 2025-05-11 06:41 | XRR_ITS ---
PROCEDURE INFORMATION: Exam: XR Chest Exam date and time: 05/11/2025 6:44 AM Age: 40 years old Clinical indication: Dyspnea and fever; Additional info: Dyspnea/cough TECHNIQUE: Imaging protocol: Radiologic exam of the chest. Views: 1 view. COMPARISON: CT chest abd pel w con* 10/22/2022 4:15 PM FINDINGS: Lungs: Unremarkable. No consolidation. Pleural spaces: Unremarkable. No pleural effusion. No pneumothorax. Heart/Mediastinum: Unremarkable. No cardiomegaly. Bones/joints: Unremarkable. XR/XR chest 1V portable [id number] IMPRESSION: No acute findings.
--- NOTE | 2025-05-11 06:58 | W.ED.NAVMDI ---
HPI - Nausea/Vomiting/Diarrhea General: Chief complaint: Nausea/Vomiting/Diarrhea Stated complaint: n/v/d/f for 2 days Time Seen by Provider: 05/11/25 06:40 History of Present Illness: 40-year-old male presents emergency room complaining nausea vomiting for last 2 days. His abdominal cramping and discomfort as well as a headache. He says he is not able to keep anything down. Denies any medic easy melena hematemesis or coffee-ground emesis. He does occasionally use marijuana products. He is not actively vomiting at the time he is seen. Most of the vomitus described as bilious. No fever sweats or chills or productive cough. Associated nausea: Yes Associated symtoms: Reports nausea; Denies chest pain or dysuria Related Data Previous Rx's ?Medication ?Instructions ?Recorded ondansetron HCl 4 mg tablet 4 mg PO Q6H PRN nausea and 05/11/25 vomiting #20 tabs Allergies Allergy/AdvReac Type Severity Reaction Status Date / Time erythromycin base Allergy ALGY-Anaphy Verified 04/25/23 11:16 laxis Review of Systems Const: Denies: fever(s) or chills Card: Denies: chest pain Resp: Denies: dyspnea GI: Reports: abdominal pain, nausea, vomiting and diarrhea; Denies: hematemesis, coffee ground emesis, hematochezia or melena : Denies: dysuria, urinary frequency or urinary urgency Musc: Denies: neck pain or back pain Skin/Breast: Denies: rash PFSH ED PFSH: Medical History Generalized anxiety disorder Nicotine dependence, cigarettes, uncomplicated Cannabis dependence, uncomplicated Other stimulant dependence, in remission Social History Smoking and tobacco/nicotine status: never used tobacco/nicotine Alcohol intake: never Substance/Drug Use: never Physical Exam Const: GENERAL APPEARANCE: cooperative ORIENTATION/CONSCIOUSNESS: Yes awake, Yes oriented to person, Yes oriented to place and Yes oriented to time HENMT: COMMON NORMALS: normocephalic, atraumatic and hearing grossly normal bilaterally HEAD & SCALP: normocephalic and atraumatic Resp: COMMON NORMALS: normal respiratory effort, No retractions, No use of accessory muscles and clear to auscultation bilaterally AUSCULTATION: clear to auscultation bilaterally Cardio: COMMON NORMALS: regular rate, regular rhythm and No murmurs present (Cardio) RATE: regular rate RHYTHM: regular rhythm GI: COMMON NORMALS: Soft to palpation and No hepatosplenomegaly present AUSCULTATION: Yes normoactive bowel sounds PALPATION: Yes Soft to palpation, No Tenderness to palpation present (GI), No Guarding due to palpation present (GI) and Yes No hepatosplenomegaly present Extremity: COMMON NORMALS: normal to inspection, capillary refill normal, no clubbing, cyanosis or edema, no calf tenderness and no pedal edema Neuro: SENSORIUM/ORIENTATION: Yes oriented to person, Yes oriented to place and Yes oriented to time Skin: COMMON NORMALS: no rashes or lesions noted GENERAL SKIN EXAM: no rashes or lesions noted Course Vital Signs: Vital signs: Vital Signs Temperature 98.0 F 05/11/25 06:27 Pulse Rate 46 L 05/11/25 09:30 Respiratory Rate 18 05/11/25 06:27 Blood Pressure 141/87 05/11/25 09:30 Pulse Oximetry 99 05/11/25 09:30 Oxygen Delivery Me thod Room Air 05/11/25 09:30 MDM - Nausea/Vomiting/Diarrhea Medical Decision Making Improved with IV fluids. BUN slightly high creatinine normal anion gap normal no leukocytosis. He has very slight elevation of his liver enzymes but T. bili and alk phos are normal urine normal. Discharge patient home clear[place] after 24 to 48 hours antiemetics as needed follow-up with not improving or if worsens Medical Records I reviewed the patient's medical records. Lab Data I reviewed the patient's lab results. 05/11/25 06:59 05/11/25 06:59 Radiology Impressions Chest X-Ray 05/11/25 06:41 IMPRESSION: No acute findings. Laboratory Results WBC 10.02 10^3/uL (3.29-11.43) 05/11/25 06:59 RBC 6.29 10^6/uL (3.85-5.65) H 05/11/25 06:59 Hgb 18.00 g/dL (11.27-16.99) H 05/11/25 06:59 Hct 53.3 % (37-53) H 05/11/25 06:59 MCV 84.7 fl (82-101) 05/11/25 06:59 MCH 28.6 pg (27-33) 05/11/25 06:59 MCHC 33.8 g/dL (30-55) 05/11/25 06:59 RDW 13.1 % (12.1-15.1) 05/11/25 06:59 Plt Count 240 10^3/cmm (157-399) 05/11/25 06:59 MPV 10.0 fL (7.4-10.4) 05/11/25 06:59 Neut % (Auto) 76.9 % 05/11/25 06:59 Lymph % (Auto) 15.0 % 05/11/25 06:59 Milam % (Auto) 7.2 % 05/11/25 06:59 Eos % (Auto) 0.4 % 05/11/25 06:59 Baso % (Auto) 0.2 % 05/11/25 06:59 Neut # (Auto) 7.71 10^3/uL (1.8-7.7) H 05/11/25 06:59 Lymph # (Auto) 1.5 10^3/uL (0.8-4.8) 05/11/25 06:59 [place] # (Auto) 0.7 10^3/uL (0.2-0.9) 05/11/25 06:59 Eos # (Auto) 0.0 10^3/uL (0.0-0.8) 05/11/25 06:59 Baso # (Auto) 0.0 10^3/uL (0.0-0.1) 05/11/25 06:59 Nucleated RBC % (auto) 0 % 05/11/25 06:59 Nucleated RBCs # 0.0 /100WBC 05/11/25 06:59 Sodium 135 mmol/L (136-145) L 05/11/25 06:59 Potassium 4.0 mmol/L (3.5-5.1) 05/11/25 06:59 Chloride 97 mmol/L (98-107) L 05/11/25 06:59 Carbon Dioxide 24 mmol/L (22-29) 05/11/25 06:59 Anion Gap 18.0 (5-19) 05/11/25 06:59 BUN 27 mg/dL (6-20) H 05/11/25 06:59 Creatinine 0.9 mg/dL (0.7-1.2) 05/11/25 06:59 GFR Calculation 93.9 mL/min (90-130) 05/11/25 06:59 Glucose 113 mg/dL (65-115) 05/11/25 06:59 Calculated Osmolality 286 mOsm/kg (285-295) 05/11/25 06:59 Calcium 9.8 mg/dL (8.5-10.5) 05/11/25 06:59 Magnesium 2.3 mg/dL (1.7-2.3) 05/11/25 06:59 Total Bilirubin 1.2 mg/dL (0.15-1.2) 05/11/25 06:59 AST 48 U/L (0-40) H 05/11/25 06:59 ALT 46 U/L (0-41) H 05/11/25 06:59 Alkaline Phosphatase 109 U/L (40-130) 05/11/25 06:59 Total Protein 8.5 g/dL (6.6-8.7) 05/11/25 06:59 Albumin 4.7 g/dL (3.5-5.2) 05/11/25 06:59 Globulin 3.8 g/dL (1.3-4.6) 05/11/25 06:59 Lipase 14 U/L (13-60) 05/11/25 06:59 Urine Color Yellow (Yellow) 05/11/25 10:00 Urine Appearance Clear (CLEAR) 05/11/25 10:00 Urine pH 6.0 (5-7) 05/11/25 10:00 Ur Specific [place] 1.021 (1.005-1.030) 05/11/25 10:00 Urine Protein Negative (Negative) 05/11/25 10:00 Urine Glucose (UA) Negative (Normal) 05/11/25 10:00 Urine Ketones Trace (Negative) 05/11/25 10:00 Urine Blood Negative (Negative) 05/11/25 10:00 Urine Nitrate Negative (Negative) 05/11/25 10:00 Urine Bilirubin Negative (Negative) 05/11/25 10:00 Urine Urobilinogen 1.0 mg/dL (Negative) 05/11/25 10:00 Ur Leukocyte Esterase Negative (Negative) 05/11/25 10:00 Urine RBC 0-2 /hpf (0-2) 05/11/25 10:00 Urine WBC 0-5 /hpf (0-5) 05/11/25 10:00 Ur Squamous Epith Cells 0-5 /hpf (0-5) 05/11/25 10:00 Amorphous Sediment Not Reportable 05/11/25 10:00 Urine Bacteria None seen /hpf (NONE) 05/11/25 10:00 Hyaline Casts 0.81 /lpf 05/11/25 10:00 All radiology interpretation(s) finalized by discharge Discharge Plan Discharge Patient Disposition: Home Clinical Impression: Gastroenteritis Condition: Stable Prescriptions: New ondansetron HCl 4 mg tablet 4 mg PO Q6H PRN (Reason: nausea and vomiting) Qty: 20 0RF Discharge Orders: Discharge ED (Routine); Ordered 05/11/25 Ordered By: Eleuterio Pathak Referrals: Joesph Serra MD [Primary Care Provider, Family Practice] Discharge Diet: Usual diet Discharge Activity: Resume usual activity Patient Instructions: Opioid Safety, Pain Management, Patient Portal & Eric Instructions Activity Restrictions/Additional Instructions: Thank you for choosing [facility] for your healthcare needs today. It is very important that you follow up as instructed or that you return to the Emergency Department should you have concerns or if your condition changes or worsens in any way. You were seen in the emergency room complaints of nausea vomiting for the last 2 days. Your laboratory test showed some mild signs of dehydration. You are given 2 L of fluid. There was no signs of acute infection at this time. Recommend clear liquid diet for 1 to 2 days and advance as tolerated. You are given ondansetron to use as needed. Print Language: Vietnamese Coding Level of Care Code ED Rfid Systems Engineer for Wilder Rey
[2025-05-11 07:01] VITALS: PULSE 68; O2SAT 99
[2025-05-11 07:21] LABS: Hematocrit 53.3 % (37-53); Hemoglobin 18.00 g/dL (11.27-16.99); Mean Corpuscular HGB Conc 33.8 g/dL (30-55); Mean Corpuscular Hemoglobin 28.6 pg (27-33); Mean Corpuscular Volume 84.7 fl (82-101); Nucleated Red Blood Cells % 0 %; Platelet Count 240 10^3/cmm (157-399); Red Blood Count 6.29 10^6/uL (3.85-5.65); White Blood Count 10.02 10^3/uL (3.29-11.43)
[2025-05-11] MEDS: ondansetron 2 mg/ML SDV 2 mL 4 MG IVP (07:26)
[2025-05-11 07:31] VITALS: PULSE 74; O2SAT 100
[2025-05-11 07:34] LABS: Alanine Aminotransferase 46 U/L (0-41); Albumin Level 4.7 g/dL (3.5-5.2); Alkaline Phosphatase 109 U/L (40-130); Anion Gap 18.0 (5-19); Aspartate Amino Transferase 48 U/L (0-40); Blood Urea Nitrogen 27 mg/dL (6-20); Calcium 9.8 mg/dL (8.5-10.5); Carbon Dioxide 24 mmol/L (22-29); Chloride 97 mmol/L (98-107); Creatinine Clr Calc Pharmacy 110.8556; Globulin 3.8 g/dL (1.3-4.6); Glucose 113 mg/dL (65-115); Lipase 14 U/L (13-60); Magnesium 2.3 mg/dL (1.7-2.3); Osmolality Calculated 286 mOsm/kg (285-295); Potassium 4.0 mmol/L (3.5-5.1); Sodium 135 mmol/L (136-145); Total Protein 8.5 g/dL (6.6-8.7)
[2025-05-11 08:00] VITALS: BP 132/81; PULSE 51; O2SAT 98
--- NOTE | 2025-05-11 08:01 | ECG_ITS ---
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 Measurements Intervals [place] Rate: 51 P: 56 ID: [id number] QRS: 34 QRSD: 91 T: 8 QT: 425 QTc: 392 Interpretive Statements SINUS BRADYCARDIA WITH SINUS ARRHYTHMIA WARNING: DATA QUALITY MAY AFFECT INTERPRETATION No previous ECG available for comparison V4 is missing Electronically Signed On 05-11-2025 09:17:22 CDT by Marlo Hanna M.D. [email or web address]
[2025-05-11 08:30] VITALS: PULSE 47; O2SAT 99
--- NOTE | 2025-05-11 08:41 | ECG_ITS ---
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 Measurements Intervals [place] Rate: 47 P: 48 ID: [id number] QRS: 51 QRSD: 90 T: 18 QT: 437 QTc: 389 Interpretive Statements SINUS BRADYCARDIA Compared to ECG 05/11/2025 08:01:57 Sinus arrhythmia no longer present Electronically Signed On 05-11-2025 09:17:04 CDT by Marlo Hanna M.D. [email or web address]
[2025-05-11 09:30] VITALS: BP 141/87; PULSE 46; O2SAT 99
[2025-05-11 10:10] LABS: Glucose Urine UA Negative (Normal); Nitrate Urine Negative (Negative); Specific Gravity, Urine 1.021 (1.005-1.030)
[2025-05-11 10:13] LABS: Add Urine Microscopic? YES
== END 2025-05-11 11:30 | disposition home or self-care (01) ==
PROVIDERS: Emergency Provider Family Medicine; PCP Family Medicine
DX: K52.9 Noninfective gastroenteritis and colitis, unspecified (principal)
CPT/HCPCS: 36415; 71045; 80053; 81001; 83690; 83735; 85025; 93005; 96361; 96374; 99285; J2405; J7030